=== PATIENT | female | born 1990 | race Two or more races ===

== ENCOUNTER 2021-02-16 08:19 | Outpatient (CLI) | payer OTHER | END 2021-02-16 08:20 | disposition home or self-care (01) | LOC: NUCLEAR 08:19 | PROVIDERS: ATTEND Internal Medicine Cardiovascular Disease | DX: R55 Syncope and collapse (principal) ==

== ENCOUNTER 2021-02-16 08:48 | Outpatient (CLI) | payer OTHER | END 2021-02-16 10:13 | disposition home or self-care (01) | LOC: TOM 08:48 | PROVIDERS: ATTEND Internal Medicine Cardiovascular Disease | DX: G93.89 Other specified disorders of brain (principal) ==

== ENCOUNTER 2021-12-29 20:00 | Emergency (ER) | payer OTHER ==
[~2021-12-29] VITALS: Ht 152.4 cm; Wt 55.8 kg
[2021-12-29] MEDS ORDERED: PRENATAL CAPLE1 EAC1 (20:20)
[2021-12-30] MEDS ORDERED: CEPHALEXIN500 MG PO (03:44)
== END 2021-12-30 03:50 ==
LOC: ER 20:00
DX: O98.512 Other viral diseases complicating pregnancy, second trimester (principal); U07.1 COVID-19; O26.892 Other specified pregnancy related conditions, second trimester; O23.42 Unspecified infection of urinary tract in pregnancy, second trimester; Z3A.18 18 weeks gestation of pregnancy; M54.89 Other dorsalgia; Z88.1 Allergy status to other antibiotic agents; N39.0 Urinary tract infection, site not specified

== ENCOUNTER 2022-01-08 14:36 | Outpatient (CLI) | payer OTHER ==
[~2022-01-08 14:36] MED LIST: CEPHALEXIN500 MG PO; PRENATAL CAPLE1 EAC1
== END 2022-01-08 15:40 | disposition home or self-care (01) ==
LOC: PRENATAL 14:36
PROVIDERS: ATTEND Obstetrics & Gynecology Maternal & Fetal Medicine
DX: O35.0XX0 Maternal care for (suspected) central nervous system malformation in fetus, not applicable or unspecified (principal); O35.3XX0 Maternal care for (suspected) damage to fetus from viral disease in mother, not applicable or unspecified; Z3A.19 19 weeks gestation of pregnancy

== ENCOUNTER 2022-05-03 14:59 | Outpatient (CLI) | payer OTHER ==
[2022-05-04] MEDS ORDERED: CEFUROXIME500 MG PO (08:45)
== END 2022-05-04 11:32 | disposition home or self-care (01) ==
LOC: OBS/DEL 14:59
PROVIDERS: ATTEND Student in an Organized Health Care Education/Training Program
DX: O26.893 Other specified pregnancy related conditions, third trimester (principal); Z3A.36 36 weeks gestation of pregnancy; N39.0 Urinary tract infection, site not specified; R10.2 Pelvic and perineal pain